=== PATIENT | male | born 1985 | race Caucasian/White ===

== ENCOUNTER 2017-10-18 09:01 | Emergency (ER) | payer BC ==
[~2017-10-18] VITALS: Ht 185.4 cm; Wt 77.0 kg
[~2017-10-18 09:01] MED LIST: MUCINEX D1 TABLET PO
[2017-10-18 10:03] LABS: EOSINOPHIL (%) 0.5 % (0-5); HEMATOCRIT 43.2 % (38.0-50.0); IMMATURE GRANULOCYTE (%) 0.4 % (0.0-0.7); INSTRUMENT ABS NEUTROPHIL CT 6.5 K/uL; LYMPHOCYTE COUNT 0.9 K/uL (1.0-2.8); MCH 30.1 PG (29.0-34.0); MCHC 34.3 G/DL (30.0-36.0); MCV 87.8 FL (86-99); MEAN PLAT.VOLUME 10.5 uM^3 (9.0-12.4); MONOCYTE (%) 10.9 % (3-12); MONOCYTE COUNT 0.9 K/uL (0-0.8); NEUTROPHIL (%) 77.3 % (45-76); NEUTROPHIL COUNT 6.5 K/uL (1.8-6.4); PLATELET COUNT 218 K/uL (156-360); RBC DIS.WIDTH-CV 12.2 % (11.8-14.6); RBC DIS.WIDTH-SD 39.4 % (39-53); RED BLOOD COUNT 4.92 M/uL (4.00-5.50); WHITE BLOOD COUNT 8.4 K/uL (4.1-10.2)
[2017-10-18 10:19] LABS: CHLORIDE 103 mEq/L (99-109); POTASSIUM 3.8 mEq/L (3.7-5.4); SODIUM 140 mEq/L (136-147)
[2017-10-18 10:20] LABS: GLUCOSE 89 mg/dL (70-99)
[2017-10-18 10:22] LABS: ANION GAP 14 MEQ/L (2-14)
[2017-10-18 10:24] LABS: GFR ESTIMATE (CALCULATED) > 59 mL/min/ (58.99-99999)
[2017-10-18 10:25] LABS: UREA NITROGEN (BUN) 15 mg/dL (9-23)
[2017-10-18] MEDS ORDERED: PREDNISONE50 MG PO (12:01)
[2017-10-18] MEDS ORDERED: PROVENTIL HFA6.7 GM IH (12:01)
[2017-10-18 12:25] VITALS: BP 124/76
== END 2017-10-18 12:26 | disposition home or self-care (01) ==
LOC: EME 09:01
PROVIDERS: Emergency Medicine
DX: J20.9 Acute bronchitis, unspecified (principal); F41.9 Anxiety disorder, unspecified
CPT/HCPCS: 71020; 80048; 85025; 87502; 94640; 99281; 99285; J1885; J2405; J7030